=== PATIENT | female | born 1950 | race Native Hawaiian/Other Pacific Islander ===

== ENCOUNTER 2017-08-28 15:59 | Emergency (ER) | payer SELFPAY ==
[~2017-08-28] VITALS: Ht 160 cm; Wt 44.5 kg
[2017-08-28 16:04] VITALS: Ht 160 cm; Wt 44.5 kg
[2017-08-28 17:00] VITALS: BP 128/81
== END 2017-08-28 17:32 | disposition home or self-care (01) ==
LOC: ED 15:59
DX: S00.03XA Contusion of scalp, initial encounter (principal); F07.81 Postconcussional syndrome; W01.0XXA Fall on same level from slipping, tripping and stumbling without subsequent striking against object, initial encounter; Y93.89 Activity, other specified; Y92.89 Other specified places as the place of occurrence of the external cause; Y99.8 Other external cause status